=== PATIENT | male | born 1950 | race Caucasian/White ===

== ENCOUNTER → 2020-02-23 | Outpatient (CLI) | payer MEDICARE | LOC: ZCOL.LAB 16:44 | DX: H60.501 Unspecified acute noninfective otitis externa, right ear (principal) ==

== ENCOUNTER 2023-11-20 11:04 | Day surgery (SDC) | payer OTHER, MEDICARE ==
[~2023-11-20] VITALS: Ht 177.8 cm; Wt 127.0 kg
[~2023-11-20 11:04] MED LIST: ALDACTONE50 MG PO; ANUSOL-HC SUPPO25 MG RC; ASPIRIN 81M81 MG/TA2 PO; B-121000 MCG PO; DULCOLAX STOOL100 MG PO; HYDRALAZINE HC100 MG PO; LASIX 40MG TABL40 MG PO; LR 1,000 ML IV SCH; Meclizine 25 MG TAB PO SCH; NEUTROGENA T/G132 M1 TOP; NORVASC 10MG10 MG PO; PRAVACHOL80 MG PO; PRINIVIL20 MG PO; SENNA-LAX8.6 MG PO; TRIAMCINOLONE A15 GM TP
[2023-11-20] MEDS ORDERED: ePHEDrine 50 MG/ML VIAL ONE (13:16)
[2023-11-20 13:18] VITALS: BP 118/55; PULSE 58; TEMP 97.9
[2023-11-20] MEDS ORDERED: Iohexol 350 - 100 ML VIAL URETER-B ONE (13:20)
[2023-11-20] MEDS ORDERED: COREG 25MG25 MG/TAB PO (13:27)
[2023-11-20] MEDS ORDERED: TYLENOL 500MG500 MG PO (13:28)
[2023-11-20] MEDS ORDERED: fentaNYL 50 MCG/ML 1 ML SYRINGE/VIAL [PACU/SDC ONLY] IV PRN (14:00)
[2023-11-20] MEDS ORDERED: Ondansetron 4 MG/2 ML VIAL IV PRN (14:00)
[2023-11-20] MEDS ORDERED: HYDROmorphone 1 MG/1 ML SYRINGE [PACU/SDC ONLY] IV PRN (14:00)
[2023-11-20 14:10] VITALS: BP 116/63; PULSE 62; TEMP 97.2
[2023-11-20 14:21] VITALS: TEMP 96.9
[2023-11-20 14:25] VITALS: BP 130/72; PULSE 58
[2023-11-20 14:40] VITALS: BP 132/74; PULSE 74
--- NOTE | 2023-11-20 14:55 | NUR ---
1410-PT TO BAY 7 PER CART FROM PACU. REPORT RECEIVED. VS OBTAINED. CALL LIGHT WITHIN REACH. PT DENIES ANY NEEDS AT THIS TIME. 1412-PT TOLERATING JUICE AND ICE CREAM. 1425-PT DENIES ANY NEEDS. 1435-IV DC'D AT THIS TIME. 1440-DISCHARGE EDUCATION COMPLETED WITH PT AND HIS . VERBALIZED UNDERSTANDING OF HOME AND FOLLOW UP CARE. ALL QUESTIONS ANSWERED. DISCHARGE PAPERWORK GIVEN TO PT. PT ABLE TO DRESS SELF WITHOUT ASSISTANCE. 1455-PT OFF UNIT PER WHEELCHAIR. PT DISCHARGED TO HOME WITH HIS PER PERSONAL VEHICLE.
[2023-11-20] MEDS ORDERED: Propranolol 1 MG/ML 1 ML AMP ONE (14:57)
== END 2023-11-20 14:55 | disposition home or self-care (01) ==
LOC: SDCO 11:04
DX: D49.4 Neoplasm of unspecified behavior of bladder (principal); R93.421 Abnormal radiologic findings on diagnostic imaging of right kidney; R93.41 Abnormal radiologic findings on diagnostic imaging of renal pelvis, ureter, or bladder; G47.33 Obstructive sleep apnea (adult) (pediatric); I10 Essential (primary) hypertension; Z91.199 Patient's noncompliance with other medical treatment and regimen due to unspecified reason; Z87.891 Personal history of nicotine dependence; Z79.899 Other long term (current) drug therapy
CPT/HCPCS: J1800; J2704; J7120; Q9967